=== PATIENT | male | born 1990 | race Caucasian/White ===

== ENCOUNTER 2020-09-03 12:19 | Emergency (ER) | payer OTHER ==
[~2020-09-03] VITALS: Ht 182.9 cm; Wt 87.3 kg
[2020-09-03 12:22] VITALS: BP 114/73
[2020-09-03] MEDS ORDERED: DIPH,PERTUSS(ACELL),TET VAC/PF 0.5 ML IM-VACC ONE ×2 (12:50→13:00)
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
--- NOTE | 2020-09-03 13:36 | NUR ---
DISCHARGE INSTRUCTIONS REVIEWED WITH PT. ALL QUESTIONS ANSWERED AT THIS TIME.
== END 2020-09-03 13:38 | disposition home or self-care (01) ==
LOC: ED 13:37
DX: S61.231A Puncture wound without foreign body of left index finger without damage to nail, initial encounter (principal); X58.XXXA Exposure to other specified factors, initial encounter; Y93.89 Activity, other specified; Y92.009 Unspecified place in unspecified non-institutional (private) residence as the place of occurrence of the external cause; Y99.8 Other external cause status
CPT/HCPCS: 90471; 90715

== ENCOUNTER 2021-02-09 06:22 | Inpatient (IN) | payer OTHER ==
[~2021-02-09] VITALS: Ht 180.3 cm; Wt 84.9 kg
[2021-02-09] MEDS ORDERED: SODIUM CHLORIDE 0.9% 1,000ML IVBOLUS ONE (07:00)
[2021-02-09] MEDS ORDERED: SODIUM CHLORIDE FLUSH 10ML SYR IVF ONE (07:00)
[2021-02-09] MEDS ORDERED: DEXAMETHASONE 4 MG/ML, 1ML IV ONE (07:00)
[2021-02-09] MEDS ORDERED: ALBUTEROL/IPRATROPIUM 2.5MG/0.5MG, 3 ML ONE ×2 (07:04→07:37)
[2021-02-09] MEDS ORDERED: DEXAMETHASONE 4 MG/ML, 1ML ONE (07:04)
[2021-02-09 07:45] LABS: BASOPHILS % (AUTO) 0 % (0-1); EOSINOPHILS % (AUTO) 0 % (1-7); LYMPHOCYTES % (AUTO) 10 % (22-44); MEAN CORPUSCULAR HEMOGLOBIN 30.8 pg (27.5-34.5); MEAN CORPUSCULAR HGB CONC 34.7 g/dL (33.2-36.2); MEAN PLATELET VOLUME 8.5 fL (7.4-10.4); MONOCYTES % (AUTO) 5 % (2-9); NEUTROPHILS % (AUTO) 85 % (42-75); PLATELET COUNT 199 x10^3/uL (130-400); RED BLOOD COUNT 4.94 x10^6/uL (4.38-5.82); RED CELL DISTRIBUTION WIDTH 13.4 % (9.4-14.8)
--- NOTE | 2021-02-09 07:45 | NUR ---
IV PLACED, LABS AND BC X 1 DRAWN WITH START. NS BOLUS INFUSING, DECADRON GIVEN PER ERP ORDER. WATER PROVIDED PER REQUEST, PT INSTRUCTED TO TAKE SIPS D/T PT REPORTING OF VOMITING FOR SEVERAL DAYS. NO NAUSEA RIGHT NOW. PCXR COMPLETED. LAB IN TO DRAW ADDITIONAL LABS AND 2ND BC. NEBULIZER STARTED.
--- NOTE | 2021-02-09 07:50 | NUR ---
RESP ISO CART AND SIGNAGE AT DOORWAY. AEROSOLIZING PROCEDURE NOTIFICATION WELL.
[2021-02-09 07:56] LABS: ALBUMIN 3.4 g/dL (3.4-5.0); ANION GAP 9 mmol/L (5-15); CALCIUM 7.7 mg/dL (8.5-10.1); CHLORIDE 101 mmol/L (98-107); CREATININE 1.03 mg/dL (0.7-1.3)
--- NOTE | 2021-02-09 09:06 | NUR ---
ADD ON ORDER FOR CTA.
[2021-02-09] MEDS ORDERED: AZITHROMYCIN 500 MG in SODIUM CHLORIDE 0.9% 250 ML IV ONE (09:30)
[2021-02-09] MEDS ORDERED: CEFTRIAXONE 1,000 MG in DEXTROSE 5% 50 ML IVPB ONE (09:30)
--- NOTE | 2021-02-09 11:13 | NUR ---
PT TO CT.
[2021-02-09] MEDS ORDERED: OMNIPAQUE 350 MG/ML, 100ML BOTTLE ONE (11:26)
[2021-02-09] MEDS ORDERED: PHARMACY MAY ADJ FOR RENAL FX MC PRN (14:00)
[2021-02-09] MEDS ORDERED: ACETAMINOPHEN 325 MG TABLET PO PRN (14:00)
[2021-02-09] MEDS ORDERED: methylPREDNISolone SOD SUCC 125 MG/2 ML ONE (14:42)
[2021-02-09] MEDS: methylPREDNISolone SOD SUCC 125 MG/2 ML IV SCH ×2 (14:53→20:50)
--- NOTE | 2021-02-09 15:37 | NUR ---
BREAK RN: CONTACT WITH PT. PIV LOCK FLUSHED WITH NS. DISCUSSED WITH PT, HAS ROOM UPSTAIRS AND WILL BE TRANSFERED AFTER REPORT CALLED AND THEN TRANSPORT AVAILABLE. UNDERSTANDING VERBALIZED. PT ST PER MONITOR. AUTO BP AND PULSE OX IN PLACE. ATTEMPT TO CALL REPORT, RN NOT AVAILABLE, SHE IS TO RETURN CALL.
--- NOTE | 2021-02-09 15:43 | NUR ---
REPORT CALLED TO JAIRO GILL RN. POC DISCUSSED. ROOM IS BEING CLEANED AT THIS TIME.
--- NOTE | 2021-02-09 16:08 | NUR ---
REPORT TO ANNE SILVA
--- NOTE | 2021-02-09 17:35 | NUR ---
PT ASSISTED UP TO BSC. CALL TO FLOOR, BED CLEAN AND PT READY FOR TRANSPORT.
[2021-02-09 18:50] VITALS: BP 105/75
[2021-02-09] MEDS: ASCORBIC ACID 500 MG TABLET PO SCH (20:48)
[2021-02-09] MEDS: MELATONIN 5 MG TABLET PO SCH (20:48)
[2021-02-09] MEDS: MAGNESIUM OXIDE 400 MG TABLET PO SCH (20:49)
[2021-02-09] MEDS: OMEGA-3/FISH OIL CAPSULE PO SCH (20:49)
[2021-02-09] MEDS: ENOXAPARIN 40 MG/0.4 ML SQ SCH (20:50)
[2021-02-10 02:16] VITALS: BP 105/63
[2021-02-10] MEDS: methylPREDNISolone SOD SUCC 125 MG/2 ML IV SCH ×4 (02:49→20:37)
[2021-02-10 04:35] LABS: ALANINE AMINOTRANSFERASE 36 U/L (12-78); ANION GAP 6 mmol/L (5-15); CALCIUM 8.3 mg/dL (8.5-10.1); CHLORIDE 104 mmol/L (98-107); CREATININE 0.81 mg/dL (0.7-1.3)
[2021-02-10 04:37] LABS: BASOPHILS % (AUTO) 0 % (0-1); EOSINOPHILS % (AUTO) 0 % (1-7); LYMPHOCYTES % (AUTO) 13 % (22-44); MEAN CORPUSCULAR HEMOGLOBIN 30.3 pg (27.5-34.5); MEAN PLATELET VOLUME 8.7 fL (7.4-10.4); MONOCYTES % (AUTO) 5 % (2-9); NEUTROPHILS % (AUTO) 82 % (42-75); PLATELET COUNT 227 x10^3/uL (130-400); RED BLOOD COUNT 4.92 x10^6/uL (4.38-5.82); RED CELL DISTRIBUTION WIDTH 13.7 % (9.4-14.8)
[2021-02-10 04:39] LABS: ALKALINE PHOSPHATASE 34 U/L (45-117); BILIRUBIN,TOTAL 0.5 mg/dL (0.2-1.0); TOTAL PROTEIN 6.9 g/dL (6.4-8.2)
[2021-02-10] MEDS: ZINC SULFATE 220 MG CAPSULE PO SCH (08:36)
[2021-02-10] MEDS: CHOLECALCIFEROL 5,000u TAB PO SCH (08:36)
[2021-02-10] MEDS: ASCORBIC ACID 500 MG TABLET PO SCH ×2 (08:36→20:36)
[2021-02-10] MEDS: OMEGA-3/FISH OIL CAPSULE PO SCH ×2 (08:36→20:36)
[2021-02-10 08:43] VITALS: BP 109/70
[2021-02-10] MEDS: FLUTICASONE/VILANTEROL 100-25MCG/INH INH SCH (10:28)
[2021-02-10 14:09] VITALS: BP_SYST 101; BP_SYST 112; BP_DIAS 58; BP_DIAS 72
[2021-02-10] MEDS: MAGNESIUM OXIDE 400 MG TABLET PO SCH (20:36)
[2021-02-10] MEDS: MELATONIN 5 MG TABLET PO SCH (20:37)
[2021-02-10] MEDS: ENOXAPARIN 40 MG/0.4 ML SQ SCH (20:37)
[2021-02-10 20:44] VITALS: BP 109/69
[2021-02-11 01:27] VITALS: BP 101/68
[2021-02-11] MEDS: methylPREDNISolone SOD SUCC 125 MG/2 ML IV SCH ×2 (02:02→09:15)
[2021-02-11 06:15] LABS: MEAN CORPUSCULAR HGB CONC 33.9 g/dL (33.2-36.2); MEAN PLATELET VOLUME 8.8 fL (7.4-10.4); PLATELET COUNT 274 x10^3/uL (130-400); RED BLOOD COUNT 4.68 x10^6/uL (4.38-5.82); RED CELL DISTRIBUTION WIDTH 13.1 % (9.4-14.8)
[2021-02-11 06:25] LABS: D-DIMER 0.63 ug/mlFEU (0.00-0.52)
[2021-02-11 06:27] LABS: ALBUMIN 2.9 g/dL (3.4-5.0); ANION GAP 6 mmol/L (5-15); CHLORIDE 101 mmol/L (98-107)
[2021-02-11 06:33] LABS: ALANINE AMINOTRANSFERASE 57 U/L (12-78); ALKALINE PHOSPHATASE 33 U/L (45-117); BILIRUBIN,TOTAL 0.6 mg/dL (0.2-1.0); CREATININE 0.84 mg/dL (0.7-1.3); TOTAL PROTEIN 6.6 g/dL (6.4-8.2)
[2021-02-11 06:58] LABS: BAND#(MANUAL) 2.42 x10^3/uL; BANDS%(MANUAL) 16 % (0-7); LYMPH#(MANUAL) 0.91 x10^3/uL (1-3.4); LYMPHS% (MANUAL) 6 % (22-44); MONOS% (MANUAL) 2 % (2-9); REACTIVE LYMPHS % (MANUAL) 2 % (0-0); SEG#(MANUAL) 11.17 x10^3/uL (1.8-6.8); SEGS% (MANUAL) 74 % (42-75)
[2021-02-11 07:00] LABS: <PLATELET ESTIMATE> ADEQUATE; <RBC MORPHOLOGY> NORMAL
[2021-02-11 07:01] LABS: LARGE PLATELETS 1+
[2021-02-11 07:58] VITALS: BP 110/72
[2021-02-11] MEDS ORDERED: FLUT1AER INH (08:30)
[2021-02-11] MEDS ORDERED: CHOL500045 PO (08:30)
[2021-02-11] MEDS ORDERED: ASCO500T9 PO (08:30)
[2021-02-11] MEDS ORDERED: ZINC220C8 PO (08:30)
[2021-02-11] MEDS ORDERED: MELA5TAB14 PO (08:30)
[2021-02-11] MEDS: FLUTICASONE/VILANTEROL 100-25MCG/INH INH SCH (09:00)
[2021-02-11] MEDS: OMEGA-3/FISH OIL CAPSULE PO SCH (09:00)
[2021-02-11] MEDS: ZINC SULFATE 220 MG CAPSULE PO SCH (09:14)
[2021-02-11] MEDS: CHOLECALCIFEROL 5,000u TAB PO SCH (09:14)
[2021-02-11] MEDS: ASCORBIC ACID 500 MG TABLET PO SCH (09:15)
[2021-02-11 12:30] VITALS: BP 100/77
== END 2021-02-11 15:06 | disposition home or self-care (01) | DRG 177 ==
LOC: ED 07:11 → ORIP 11:31 → 3N 18:39
PROVIDERS: ADMIT Hospitalist; ATTEND Hospitalist
DX: U07.1 COVID-19 (principal); J12.82 Pneumonia due to coronavirus disease 2019; J96.01 Acute respiratory failure with hypoxia; J06.9 Acute upper respiratory infection, unspecified; Z90.49 Acquired absence of other specified parts of digestive tract
CPT/HCPCS: 36415; 71045; 71275; 80048; 80053; 82040; 82306; 82728; 83605; 83615; 84145; 85025; 85379; 85384; 87040; 93005; 96374; G0378; J0456; J0696; J1100; J1650; Q9967; U0005; J2930; J7030; J7050; U0003